=== PATIENT | male | born 1950 | race American Indian/Alaskan Native ===

== ENCOUNTER 2016-07-08 15:44 | Emergency (ER) | payer MEDICARE ==
--- NOTE | 2016-07-08 17:26 | Emergency Department Report ---
Entered by JESENIA PERDOMO, acting as scribe for LEROY LUCIO PA. Chief Complaint: Extremity Injury, Lower Stated Complaint: RT FOOT SWOLLEN Time Seen by Provider: 07/08/16 17:10 - HPI History of Present Illness: Pt c/o right foot swelling. Rates associated pain a 4/10 in severity. Patient notes he is unable to put on his shoe. Denies numbness, tingling, and loss of feeling in right foot. Denies any trauma/injury to right foot. PMHx of gout, CVA, and psychiatric treatment Notes having gout for 15 years. Uses tobacco products daily. - ROS Review of Systems: All systems are negative unless stated in HPI above. - Exam Vital Signs: Vital Signs 07/08/16 16:45 Temperature 97.8 F Pulse Rate 69 Respiratory 18 Rate Blood Pressure 126/68 O2 Sat by Pulse 99 Oximetry Physical Exam: General: 66 y/o male that is well nourished, well developed, nontoxic in appearance, and in no acute distress Extremities: FROM. Right ankle swelling present. no pitting edema present. Right dorsal forefoot tenderness. No neurovascular deficit. dorsalis pedis pulses intact bilaterally. Psych: Normal mood. Normal affect. Skin. Warm, dry, and intact. No rash or lesions. MSE screening note: Focused history and physical exam performed. Due to findings the following was ordered: ED Medical Decision Making - Radiology Data Radiology results: pending - Medical Decision Making Patient was seen by provider in triage area. ED Disposition for MSE Condition: Stable This documentation as recorded by the scribe,JESENIA PERDOMO,accurately reflects the service I personally performed and the decisions made by ,LEROY LUCIO PA.
--- NOTE | 2016-07-08 19:17 | XRay Report ---
FINAL REPORT EXAM: XR FOOT 3 RT HISTORY: pain/swelling in the right foot TECHNIQUE: AP, lateral, and oblique portable views of the right foot PRIORS: None. FINDINGS: There is no evidence for acute fracture or dislocation. No soft tissue swelling or radiopaque foreign bodies are seen. Bony mineralization is normal. Joint spaces are maintained. There is a moderate hallux valgus deformity of the 1st metatarsophalangeal joint. Large spur off the posterior talus is seen. Small spurs off the posterior and plantar calcaneus and the tarsometatarsal joints is seen. IMPRESSION: No acute soft tissue or bony abnormality noted.
--- NOTE | 2016-07-08 19:38 | XRay Report ---
FINAL REPORT EXAM: XR ANKLE 3 RT HISTORY: pain/swelling in the right ankle TECHNIQUE: AP, lateral, and oblique views of the right ankle PRIORS: None. FINDINGS: There is no evidence for acute fracture or dislocation. There is generalized soft tissue swelling around the ankle, slightly greater on the medial aspect. No radiopaque foreign bodies are seen. The ankle mortise is intact. Bony mineralization is osteopenic . Large spur off the posterior talus is seen. A small spur off the plantar calcaneus is noted. IMPRESSION: No acute bony abnormality noted. Generalized soft tissue swelling around the ankle.
[2016-07-09] MEDS ORDERED: MOTRIN PO ONE (00:20)
[2016-07-09] MEDS ORDERED: DELTASONE PO ONE (00:20)
--- NOTE | 2016-07-09 00:20 | Emergency Department Report ---
ED Extremity Problem HPI - General Chief complaint: Extremity Injury, Lower Stated complaint: RT FOOT SWOLLEN Time Seen by Provider: 07/09/16 00:02 Source: patient Mode of arrival: Ambulatory Limitations: No Limitations - History of Present Illness Initial comments: Patient here reports that he was at [facility] today and seen for follow-up visit for high blood pressure, and other medical problems. He said that they draw lab work form him. Patient is on Norvasc, aspirin and medication for high cholesterol. He said that he has swelling to his right foot and ankle that been going on for 15 years from gout. He said he mentioned that to [facility] and they said that he can follow-up. Patient said that he went back to his home he lives in the apartment and social services specialist told him that he needs to go back to the emergency room to be seen for swelling in his foot. Patient's that he is not on any medication for gout but he takes Advil when he gets a flare up and it happens every 3 months. He denies any chest pain or shortness of breath. He reports his pain is 4 out of 10 and aching. Denies any history of heart disease or congestive heart failure. Pt has [facility] paperwork with him where he was seen and follow up appointments already scheduled. Denies any history of blood clots or circulation problem. Patient states that he is upset because the social services specialist made him come and he doesn't feel like he needs to be here because it's his gout MD Complaint: joint swelling, joint paint Onset/Timin -: days(s) Location: right, lower extremity History of Same: Yes -: No myalgia, Yes arthralgia, No fever, No associated dyspnea, No associated chest pain Radiation: none Severity scale (0 -10): 4 Quality: aching Consistency: constant Improves with: rest Worsens with: weight bearing, walking, palpation Associated Symptoms: arthralgias. denies: denies other symptoms, chest pain, shortness of breath, fever, myalgias, rash - Related Data Home Medications Medication Instructions Recorded Confirmed Last Taken Aspirin 81 mg PO DAILY 07/08/16 07/08/16 07/08/16 amLODIPine [Norvasc] 5 mg PO DAILY 07/08/16 07/08/16 07/08/16 Previous Rx's Medication Instructions Recorded Last Taken Type predniSONE [Deltasone] 20 mg PO QDAY #3 tab 07/09/16 Unknown Rx traMADol [Ultram] 50 mg PO Q6HR PRN #12 tablet 07/09/16 Unknown Rx Allergies Allergy/AdvReac Type Severity Reaction Status Date / Time No Known Allergies Allergy Unverified 07/08/16 16:45 ED Review of Systems ROS: Stated complaint: RT FOOT SWOLLEN Other details as noted in HPI Comment: All other systems reviewed and negative Constitutional: denies: chills, fever Eyes: denies: eye pain, vision change Respiratory: no symptoms reported Cardiovascular: denies: chest pain, palpitations, edema, syncope Gastrointestinal: denies: abdominal pain, nausea, vomiting, diarrhea, constipation Musculoskeletal: joint swelling, arthralgia. denies: back pain, myalgia Skin: denies: rash Neurological: denies: headache, weakness, numbness, paresthesias, confusion, abnormal gait, vertigo ED Past Medical Hx - Past Medical History Previous Medical History?: Yes Hx Hypertension: Yes Hx CVA: Yes Hx Psychiatric Treatment: Yes Additional medical history: Hyperlipidemia - Surgical History Past Surgical History?: No - Family History Family history: hypertension - Social History Smoking Status: Current Every Day Smoker Substance Use Type: Alcohol - Medications Home Medications: Home Medications Medication Instructions Recorded Confirmed Last Taken Type Aspirin 81 mg PO DAILY 07/08/16 07/08/16 07/08/16 History amLODIPine [Norvasc] 5 mg PO DAILY 07/08/16 07/08/16 07/08/16 History predniSONE [Deltasone] 20 mg PO QDAY #3 tab 07/09/16 Unknown Rx traMADol [Ultram] 50 mg PO Q6HR PRN #12 tablet 07/09/16 Unknown Rx ED Physical Exam - General Limitations: No Limitations General appearance: alert, in no apparent distress - Head Head exam: Present: atraumatic, normocephalic, normal inspection - Eye Eye exam: Present: normal appearance, PERRL, EOMI Pupils: Present: normal accommodation - Neck Neck exam: Present: normal inspection, full ROM. Absent: tenderness, meningismus, lymphadenopathy - Respiratory Respiratory exam: Present: normal lung sounds bilaterally. Absent: respiratory distress, chest wall tenderness - Cardiovascular Cardiovascular Exam: Present: regular rate, normal rhythm, normal heart sounds - GI/Abdominal GI/Abdominal exam: Present: soft, normal bowel sounds. Absent: distended, tenderness, guarding, rebound, rigid - Extremities Exam Extremities exam: Present: full ROM, tenderness (tenderness to palpate right outer ankle and warmth to touch with without any erythema), normal capillary refill, pedal edema (mild swelling to right foot), joint swelling (right outer ankle). Absent: calf tenderness - Expanded Lower Extremity Exam Right Hip exam: Present: normal inspection, full ROM, pelvic stability. Absent: tenderness, swelling, abrasion, laceration, ecchymosis, deformity, crepidus, dislocation, erythema, external rotation, internal rotation, shortening Upper Leg exam: Present: normal inspection, full ROM. Absent: tenderness, swelling, abrasion, laceration, ecchymosis, deformity, crepidus, dislocation, erythema Knee exam: Present: normal inspection, full ROM, full knee extension. Absent: tenderness, swelling, abrasion, laceration, ecchymosis, deformity, crepidus, dislocation, erythema, effusion, pain w/ pronation/supination Lower Leg exam: Present: normal inspection, full ROM. Absent: tenderness, swelling, abrasion, laceration, ecchymosis, deformity, crepidus, dislocation, erythema, palpable cord, Brittaney's sign Ankle exam: Present: full ROM, tenderness (right outer ankle), swelling (right outer ankle). Absent: normal inspection, abrasion, laceration, ecchymosis, deformity, crepidus, dislocation, erythema Foot/Toe exam: Present: full ROM, swelling (right outer lateral foot). Absent: tenderness, abrasion, laceration, ecchymosis, deformity, crepidus, dislocation, erythema, amputation, puncture wound, foreign body, calcaneal tenderness, tenderness at base of 5th metatarsal, nail avulsion, subungual hematoma Neuro vascular tendon exam: Present: no vascular compromise. Absent: pulse deficit, abnormal cap refill, motor deficit, sensory deficit, tendon deficit, extremity cold to touch, pallor, abnormal 2-point discrimination, decreased fine /light touch, foot drop, peroneal nerve deficit, significant pain with passive ROM of distal joint Gait: Positive: observed and limited by pain - Back Exam Back exam: Present: normal inspection, full ROM - Neurological Exam Neurological exam: Present: alert, oriented X3, normal gait, reflexes normal. Absent: motor sensory deficit - Psychiatric Psychiatric exam: Present: normal affect, normal mood - Skin Skin exam: Present: warm, dry, intact, normal color. Absent: rash ED Course Vital Signs 07/08/16 16:45 Temperature 97.8 F Pulse Rate 69 Respiratory 18 Rate Blood Pressure 126/68 O2 Sat by Pulse 99 Oximetry - Reevaluation(s) Reevaluation #1: 07/09/16 00:56 She given Motrin 600 mg and Deltasone 60 mg for acute gouty arthritis. ED Medical Decision Making - Radiology Data Radiology results: report reviewed X-ray of right foot and ankle revealed no acute findings. - Medical Decision Making ED Course:Sent to to emergency room by a behavioral health case manager for right ankle and foot swelling with right ankle pain. She said he had gout for 15 years and this happens every 3 months and he follows at [facility] for his gout. He usually takes [id number] medication for his gout. Seen at [facility] today and he said he had lab work done he said he had follow-up visit for management of his high blood pressure, high cholesterol and history of stroke. Patient is on [facility] aspirin and cholesterol medication. Patient said this is something that happens and he is upset that his behavioral health case manager sent him to the hospital even though he was at [facility] and face on him today and noted that his foot was swollen. Patient given Motrin 600 mg and Deltasone 60 mg for gout flareup. Patient discharged home to follow-up with [facility] to manage his chronic medical problem. Patient given prescription for Ultram and prednisone. Discharge from emergency room to return to his place of resident via Medicaid van. Critical care attestation.: If time is entered above; I have spent that time in minutes in the direct care of this critically ill patient, excluding procedure time. ED Disposition Clinical Impression: Gout flare Qualifiers: Gout site: ankle Gout etiology: unspecified cause Laterality: right Qualified Code(s): M10.9 - Gout, unspecified Arthralgia Qualifiers: Joint pain location: ankle Laterality: right Qualified Code(s): M25.571 - Pain in right ankle and joints of right foot Disposition: DISCHARGED TO HOME OR SELFCARE Is pt being admited?: No Does the pt Need Aspirin: No Condition: Stable Instructions: Acute Gouty Arthritis (ED), Arthralgia (ED), Low Purine Diet (ED) Additional Instructions: Please follow up with [facility] for your chronic medical problems. Please state medication as prescribed. Prescriptions: predniSONE [Deltasone] 20 mg PO QDAY #3 tab traMADol [Ultram] 50 mg PO Q6HR PRN #12 tablet PRN Reason: Pain Referrals: PRIMARY CARE,MD [Primary Care Provider] - 2-3 Days
[2016-07-09 01:13] VITALS: BP 146/84
== END 2016-07-09 01:03 | disposition home or self-care (01) ==
LOC: ED 15:44
DX: M10.9 Gout, unspecified (principal); M25.571 Pain in right ankle and joints of right foot; I10 Essential (primary) hypertension; E78.5 Hyperlipidemia, unspecified; F17.200 Nicotine dependence, unspecified, uncomplicated; Z86.73 Personal history of transient ischemic attack (TIA), and cerebral infarction without residual deficits; Z79.82 Long term (current) use of aspirin
CPT/HCPCS: 73610; 73630; 99283; J7512

== ENCOUNTER 2019-05-13 13:28 | Emergency (ER) | payer MEDICARE ==
[2019-05-13] MEDS ORDERED: LORazepam 2 MG/ML VIAL IV PRN ×3 (14:02)
--- NOTE | 2019-05-13 14:02 | Emergency Department Report ---
ED Seizure HPI - General Chief Complaint: Seizure Stated Complaint: POSS SEIZURE Time Seen by Provider: 05/13/19 13:57 Source: patient Mode of arrival: Stretcher Limitations: No Limitations - History of Present Illness Initial Comments: Patient is 69 years old male with history of chronic alcohol abuse, hypertension and CVA. Patient brought to the emergency room from [facility] after patient found to have a seizure. According to EMS patient was found to be post ictal. Patient was admitted there for alcohol rehab voluntarily. In the emergency room patient is alert, oriented x3 in no acute distress complaining of generalized itching. He denies any headache, neck pain, chest pain, shortness of breath, fever, nausea or vomiting. No weakness numbness or tingling sensation. MD Complaint: possible seizure -: This afternoon Description of Episode: loss of consciousness, tonic-clonic movement, post-event confusion Witnessed:: Yes Seizure History: none Possible Precipitating Event: none Associated Symptoms: denies other symptoms Treatments Prior to Arrival: none - Related Data Home Medications Medication Instructions Recorded Confirmed Last Taken Aspirin 81 mg PO DAILY 07/08/16 07/08/16 07/08/16 amLODIPine [Norvasc] 5 mg PO DAILY 07/08/16 07/08/16 07/08/16 Previous Rx's Medication Instructions Recorded Last Taken Type predniSONE [Deltasone] 20 mg PO QDAY #3 tab 07/09/16 Unknown Rx traMADoL [Ultram] 50 mg PO Q6HR PRN #12 tablet 07/09/16 Unknown Rx Allergies Allergy/AdvReac Type Severity Reaction Status Date / Time No Known Allergies Allergy Unverified 07/08/16 16:45 ED Review of Systems ROS: Stated complaint: POSS SEIZURE Other details as noted in HPI Comment: All other systems reviewed and negative Constitutional: denies: chills, fever Respiratory: denies: cough, shortness of breath, SOB with exertion, wheezing Cardiovascular: denies: chest pain, palpitations Gastrointestinal: denies: abdominal pain Neurological: denies: headache, weakness, numbness, paresthesias, confusion, abnormal gait Psychiatric: denies: depression, auditory hallucinations, visual hallucinations, homicidal thoughts, suicidal thoughts ED Past Medical Hx - Past Medical History Hx Hypertension: Yes Hx CVA: Yes Hx Psychiatric Treatment: Yes Additional medical history: Hyperlipidemia - Surgical History Past Surgical History?: No - Social History Smoking Status: Never Smoker Substance Use Type: Alcohol - Medications Home Medications: Home Medications Medication Instructions Recorded Confirmed Last Taken Type Aspirin 81 mg PO DAILY 07/08/16 07/08/16 07/08/16 History amLODIPine [Norvasc] 5 mg PO DAILY 07/08/16 07/08/16 07/08/16 History predniSONE [Deltasone] 20 mg PO QDAY #3 tab 07/09/16 Unknown Rx traMADoL [Ultram] 50 mg PO Q6HR PRN #12 tablet 07/09/16 Unknown Rx ED Physical Exam - General Limitations: No Limitations General appearance: alert, in no apparent distress - Head Head exam: Present: atraumatic, normocephalic, normal inspection - Eye Eye exam: Present: normal appearance - ENT ENT exam: Present: normal exam, normal orophraynx, mucous membranes moist - Neck Neck exam: Present: normal inspection, full ROM. Absent: tenderness, meningismus, lymphadenopathy, thyromegaly - Respiratory Respiratory exam: Present: normal lung sounds bilaterally - Cardiovascular Cardiovascular Exam: Present: regular rate, normal rhythm, normal heart sounds - GI/Abdominal GI/Abdominal exam: Present: soft, normal bowel sounds. Absent: distended, tenderness, guarding, rebound, rigid, organomegaly, mass, bruit, pulsatile mass, hernia - Extremities Exam Extremities exam: Present: normal inspection, full ROM, normal capillary refill - Back Exam Back exam: Present: normal inspection, full ROM. Absent: CVA tenderness (R), CVA tenderness (L) - Neurological Exam Neurological exam: Present: alert, oriented X3, CN II-XII intact - Psychiatric Psychiatric exam: Present: normal mood, anxious. Absent: homicidal ideation, suicidal ideation - Skin Skin exam: Present: warm, intact, normal color ED Course Vital Signs 05/13/19 05/13/19 05/13/19 13:45 13:58 16:03 Temperature 98.2 F 97.6 F 98.1 F Pulse Rate 69 72 70 Respiratory 18 17 16 Rate Blood Pressure 116/73 Blood Pressure 127/61 128/75 [Left] O2 Sat by Pulse 100 97 100 Oximetry ED Medical Decision Making - Lab Data Result diagrams: 05/13/19 14:49 05/13/19 14:49 - EKG Data -: EKG Interpreted by Me EKG shows normal: sinus rhythm Rate: normal - EKG Data Interpretation: no acute changes - Radiology Data Radiology results: report reviewed - Medical Decision Making Patient is 69 years old male with history of chronic alcohol abuse, hypertension and CVA. Patient brought to the emergency room from [facility] after patient found to have a seizure. According to EMS patient was found to be post ictal. Patient was admitted there for alcohol rehab voluntarily. In the emergency room patient is alert, oriented x3 in no acute distress complaining of generalized itching. He denies any headache, neck pain, chest pain, shortness of breath, fever, nausea or vomiting. No weakness numbness or tingling sensation. Patient remained asymptomatic in the emergency room. No seizure activity observed. CT brain is negative for acute finding. Labs reviewed and is unremarkable. Patient CIWA score is 1. Patient discharged home in stable condition and advised to follow-up with his primary care physician in the next 2 to 3 days and to return to the ER if he develop any new symptoms. Critical care attestation.: If time is entered above; I have spent that time in minutes in the direct care of this critically ill patient, excluding procedure time. ED Disposition Clinical Impression: Seizure, Alcohol abuse, UTI (urinary tract infection) Disposition: DC-01 TO HOME OR SELFCARE Is pt being admited?: No Condition: Stable Instructions: Abuse of Alcohol (ED), New-Onset Seizure in Adults (ED), Urinary Tract Infection in Men (ED) Referrals: SHAY LIVINGSTON MD [Referring] - 3-5 Days
--- NOTE | 2019-05-13 15:08 | Cat Scan Report ---
CT HEAD WITHOUT CONTRAST INDICATION / CLINICAL INFORMATION: Seizure. TECHNIQUE: All CT scans at this location are performed using CT dose reduction for ALARA by means of automated e xposure control. COMPARISON: 08/20/2016 FINDINGS: HEMORRHAGE: No evidence of intracranial hemorrhage or extra-axial fluid collection. EXTRA-AXIAL SPACES: Cortical sulci, sylvian fissures and basilar cisterns have an unremarkable appear ance. VENTRICULAR SYSTEM: The ventricular system is of normal size and configuration. CEREBRAL PARENCHYMA: Left temporo-occipital encephalomalacia and no suspicious hypodensity. Moderate bilateral periventricular white matter hypodensities. MIDLINE SHIFT OR HERNIATION: There is no mass effect. CEREBELLUM / BRAINSTEM: Brainstem and cerebellum have an unremarkable appearance. INTRACRANIAL VESSELS:No abnormalities are identified on this noncontrast head CT. ORBITS: visualized portions of the orbits have an unremarkable appearance. SOFT TISSUES of HEAD: No significant abnormality. CALVARIUM: Evaluation of bone windows reveals no abnormalities. PARANASAL SINUSES / MASTOID AIR CELLS: Paranasal sinuses are free from inflammatory mucosal disease. Mastoid air cells are normally pneumatized. ADDITIONAL FINDINGS: None. IMPRESSION: 1. No acute intracranial abnormality. 2. Chronic left temporo-occipital infarct. 3. Moderate chronic white matter microangiopathy. Signer Name: Glen Hurt MD Signed: 05/13/2019 3:03 PM Workstation Name: [id number]
[2019-05-13 15:17] LABS: Basophils # (Auto) 0.2 K/mm3 (0.0-0.1); Basophils % (Auto) 2.5 % (0.0-1.8); Eosinophils # (Auto) 0.2 K/mm3 (0.0-0.4); Hematocrit 37.3 % (35.5-45.6); Hemoglobin 11.8 gm/dl (11.8-15.2); Lymphocytes % (Auto) 16.3 % (13.4-35.0); Mean Corpuscular HGB Conc 32 % (32-34); Mean Corpuscular Volume 84 fl (84-94); Monocytes # (Auto) 0.7 K/mm3 (0.0-0.8); Monocytes % (Auto) 12.3 % (0.0-7.3); Platelet Count 165 K/mm3 (140-440); Red Blood Count 4.42 M/mm3 (3.65-5.03); Red Cell Distribution Width 15.6 % (13.2-15.2)
[2019-05-13 15:29] LABS: Bacteria,Urine 2+ /HPF (Negative); Bilirubin,Urine NEG (Negative); Blood,Urine NEG (Negative); Color,Urine Yellow (Yellow); Protein,Urine <15 mg/dL mg/dL (Negative)
[2019-05-13 15:32] LABS: Amphetamine Screen,Urine PRESUMPTIVE NEGATIVE; Benzodiazepines Screen,Urine PRESUMPTIVE NEGATIVE; Cannabinoid Screen,Urine PRESUMPTIVE NEGATIVE; Cocaine Screen,Urine PRESUMPTIVE NEGATIVE; Methadone Screen,Urine PRESUMPTIVE NEGATIVE; Opiate Screen,Urine PRESUMPTIVE NEGATIVE
[2019-05-13 15:39] LABS: Alanine Aminotransferase 37 units/L (7-56); Albumin 3.4 g/dL (3.9-5); BUN/Creatinine Ratio 10; Blood Urea Nitrogen 10 mg/dL (9-20); Calcium 8.6 mg/dL (8.4-10.2); Hemolysis Index 17
[2019-05-13 15:40] LABS: Bilirubin,Direct < 0.2 mg/dL (0-0.2)
[2019-05-14 08:32] VITALS: BP 127/68
== END 2019-05-14 11:15 | disposition home or self-care (01) ==
LOC: ED 13:28
DX: R56.9 Unspecified convulsions (principal); F10.10 Alcohol abuse, uncomplicated; N39.0 Urinary tract infection, site not specified; I10 Essential (primary) hypertension; E78.5 Hyperlipidemia, unspecified; Z86.73 Personal history of transient ischemic attack (TIA), and cerebral infarction without residual deficits
CPT/HCPCS: 36415; 70450; 80048; 80076; 80307; 80320; 81001; 85025; 87086; 93005; 93010; G0480